=== PATIENT | female | born 1935 | race Caucasian/White ===

== ENCOUNTER 2017-07-26 14:53 | Inpatient (IN) | payer MEDICARE, MEDICAID ==
[2017-07-26 16:03] LABS: CHLORIDE,CL 96 mEq/L (98-106); SODIUM,NA 137 mEq/L (136-145)
[2017-07-26 16:28] LABS: O2 DELIVERY DEVICE NASAL CANNULA
[2017-07-26 16:29] LABS: BICARBONATE,ARTERIAL 32.4 mm/L (22.0-26.0); O2 FLOW RATE 3; O2 SATURATION ARTERIAL 82 % (95-98); PCO2 ARTERIAL 48 mm/Hg0 (35-45); PO2 ARTERIAL 46 mm/Hg (80-100)
--- NOTE | 2017-07-26 18:12 | EDM.PDOC ---
ED HPI GENERAL MEDICAL PROBLEM - General Chief Complaint: General Stated Complaint: DEHYDRATED/CONFUSED Time Seen by Provider: 07/26/17 15:05 Source of Information: Reports: Patient, EMS, EMS Notes Reviewed History Limitations: Reports: No Limitations - History of Present Illness INITIAL COMMENTS - FREE TEXT/NARRATIVE: Family was concerned about her increase in weakness and "not acting " right for the last day. She has been crawling around at home and not able to walk due to weakness. Has only been drinking boost for meals as she hasn't been able to get other food. She denies any complaints and did not want to come here today. She denies any fever or chills. Denies SOB, cough or abdominal concerns. Denies pain. Staff noted open area on buttock that she denies having. O2 sats on admit were in the 80's. Duration: Getting Worse Associated Symptoms: Reports: Cough, Shortness of Breath. Denies: Chest Pain, Fever/Chills Back Pain Score (Numeric/FACES): 8 - Related Data Allergies Allergy/AdvReac Type Severity Reaction Status Date / Time No Known Allergies Allergy Verified 07/26/17 15:32 Home Meds: Home Meds Ibuprofen 400 mg PO ASDIRECTED PRN 07/26/17 [History] Past Medical History HEENT History: Reports: Cataract, Impaired Vision Cardiovascular History: Reports: Heart Failure, Hypertension Respiratory History: Reports: COPD, Pneumonia, Recurrent Gastrointestinal History: Reports: Other (See Below) Other Gastrointestinal History: chronic stomach ache per daughter Genitourinary History: Reports: Acute Renal Failure [employer] 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: Musculoskeletal History: Reports: Back Pain, Chronic Psychiatric History: Reports: Anxiety, Depression Other Psychiatric History: has never taken medications for above - Past Surgical History HEENT Surgical History: Reports: Cataract Surgery Cardiovascular Surgical History: Reports: None Respiratory Surgical History: Reports: None, Tracheostomy GI Surgical History: Reports: Colonoscopy Female Surgical History: Reports: None Musculoskeletal Surgical History: Reports: Hip Replacement, Other (See Below) Other Musculoskeletal Surgeries/Procedures:: disc surgery in past Social & Family History - Tobacco Use Smoking Status *Q: Current Every Day Smoker Years of Tobacco use: 25 Packs/Tins Daily: 1 Used Tobacco, but Quit: No Second Hand Smoke Exposure: No - Alcohol Use Days Per Week of Alcohol Use: 0 - Recreational Drug Use Recreational Drug Use: No - Living Situation & Occupation Living situation: Reports: , with Spouse Occupation: Retired ED ROS GENERAL - Review of Systems Review Of Systems: See Below Constitutional: Reports: Weakness. Denies: Fever, Chills HEENT: Reports: No Symptoms Respiratory: Reports: Shortness of Breath, Cough Cardiovascular: Denies: Chest Pain GI/Abdominal: Reports: No Symptoms : Reports: No Symptoms Musculoskeletal: Reports: Back Pain Skin: Reports: No Symptoms Neurological: Reports: Confusion ED EXAM, GENERAL - Physical Exam Exam: See Below Exam Limited By: No Limitations General Appearance: Alert, No Apparent Distress Ears: Normal External Exam, Normal Canal Nose: Normal Inspection Throat/Mouth: Normal Inspection, Normal Oropharynx Head: Atraumatic, Normocephalic Neck: Normal Inspection, Supple, Non-Tender Respiratory/Chest: Decreased Breath Sounds (bilaterally, No rales or wheezing noted.) Cardiovascular: Irregularly Irregular, Other (edema bilaterally.) GI/Abdominal: Normal Bowel Sounds, Soft, Non-Tender Extremities: Pedal Edema (bilaterally) Neurological: Alert Skin Exam: Warm, Dry, Other (has open area quarter size noted. Bottom is red and irritated.) Course - Vital Signs Last Recorded V/S: Last Vital Signs Temp 97.6 F 07/26/17 15:00 Pulse 104 H 07/26/17 15:00 Resp 18 07/26/17 15:00 BP 100/71 07/26/17 15:00 Pulse Ox 92 L 07/26/17 15:00 - Orders/Labs/Meds Orders: Active Orders 24 hr Category Date Time Status Chest 2V [CR] Stat Exams 07/26/17 15:10 Taken Labs: Laboratory Tests 07/26/17 07/26/17 07/26/17 Range/Units 15:09 15:37 15:37 WBC 16.3 H (5.0-10.0) 10^3/uL RBC 5.18 (4.00-5.50) 10^6/uL Hgb 15.1 (12.0-16.0) g/dL Hct 45.0 (37.0-47.0) % MCV 86.9 (82.0-94.0) fL MCH 29.2 (27.0-32.0) pg MCHC 33.6 (33.0-38.0) g/dL RDW Coeff of Lisa 14.9 (11.0-15.0) % Plt Count 189 (150-400) 10^3/uL Add Manual Diff Yes Neutrophils % (Manual) 89 H (35-85) % Band Neutrophils % 4 (0-5) % Lymphocytes % (Manual) 4 L (21-55) % Monocytes % (Manual) 3 (2-12) % Absolute Neutrophils 15.16 H (1.80-7.00) 10^3/uL Lymphocytes # (Manual) 0.65 L (1.00-4.80) 10^3/uL Monocytes # (Manual) 0.49 (0.00-0.80) 10^3/uL ABG pH (7.35-7.45) ABG pCO2 (35-45) mm/Hg0 ABG pO2 (80-100) mm/Hg ABG HCO3 (22.0-26.0) mm/L ABG O2 Saturation (95-98) % ABG Base Excess (-2.0-3.0) O2 Delivery Device Oxygen Flow Rate Sodium 137 (136-145) mEq/L Potassium 4.6 D (3.5-5.0) mEq/L Chloride 96 L (98-106) mEq/L Carbon Dioxide 36 H (21-32) mmol/L BUN 61 H D (7-18) mg/dL Creatinine 0.8 (0.6-1.0) mg/dL Est Cr Clr Drug Dosing 34.71 mL/min Estimated GFR (MDRD) > 60 (>=60) mL/min Glucose 132 H (75-99) mg/dL Calcium 9.7 (8.4-10.1) mg/dL Total Bilirubin 0.9 (0.0-1.0) mg/dL AST 29 (15-37) U/L ALT 41 (12-78) U/L Alkaline Phosphatase 86 (46-116) U/L C-Reactive Protein 12.8 H (0.2-0.8) mg/dL NT-Pro-B Natriuret Pep 1643 H (0-1000) pg/mL Total Protein 7.6 (6.4-8.2) g/dL Albumin 3.0 L (3.4-5.0) g/dL Urine Color Yellow (YELLOW) Urine Appearance Clear (CLEAR) Urine pH 6.0 (4.5-8.0) Ur Specific [place] 1.015 (1.003-1.020) Urine Protein >=300 H (NEGATIVE) mg/dL Urine Glucose (UA) Negative (NEGATIVE) mg/dL Urine Ketones Negative (NEGATIVE) mg/dL Urine Occult Blood Small H (NEGATIVE) Urine Nitrite Negative (NEGATIVE) Urine Bilirubin Negative (NEGATIVE) Urine Urobilinogen 0.2 (0.2-1.0) EU/dL Ur Leukocyte Esterase Negative (NEGATIVE) Urine RBC 0-5 (0-5) /HPF Urine WBC 0-5 (0-5) /HPF Ur Squamous Epith Cells Few H (NOT SEEN) /HPF 07/26/17 Range/Units 16:20 WBC (5.0-10.0) 10^3/uL RBC (4.00-5.50) 10^6/uL Hgb (12.0-16.0) g/dL Hct (37.0-47.0) % MCV (82.0-94.0) fL MCH (27.0-32.0) pg MCHC (33.0-38.0) g/dL RDW Coeff of Lisa (11.0-15.0) % Plt Count (150-400) 10^3/uL Add Manual Diff Neutrophils % (Manual) (35-85) % Band Neutrophils % (0-5) % Lymphocytes % (Manual) (21-55) % Monocytes % (Manual) (2-12) % Absolute Neutrophils (1.80-7.00) 10^3/uL Lymphocytes # (Manual) (1.00-4.80) 10^3/uL Monocytes # (Manual) (0.00-0.80) 10^3/uL ABG pH 7.44 (7.35-7.45) ABG pCO2 48 H (35-45) mm/Hg0 ABG pO2 46 L (80-100) mm/Hg ABG HCO3 32.4 H (22.0-26.0) mm/L ABG O2 Saturation 82 L (95-98) % ABG Base Excess 8.0 H (-2.0-3.0) O2 Delivery Device Nasal cannula Oxygen Flow Rate 3 Sodium (136-145) mEq/L Potassium (3.5-5.0) mEq/L Chloride (98-106) mEq/L Carbon Dioxide (21-32) mmol/L BUN (7-18) mg/dL Creatinine (0.6-1.0) mg/dL Est Cr Clr Drug Dosing mL/min Estimated GFR (MDRD) (>=60) mL/min Glucose (75-99) mg/dL Calcium (8.4-10.1) mg/dL Total Bilirubin (0.0-1.0) mg/dL AST (15-37) U/L ALT (12-78) U/L Alkaline Phosphatase (46-116) U/L C-Reactive Protein (0.2-0.8) mg/dL NT-Pro-B Natriuret Pep (0-1000) pg/mL Total Protein (6.4-8.2) g/dL Albumin (3.4-5.0) g/dL Urine Color (YELLOW) Urine Appearance (CLEAR) Urine pH (4.5-8.0) Ur Specific [place] (1.003-1.020) Urine Protein (NEGATIVE) mg/dL Urine Glucose (UA) (NEGATIVE) mg/dL Urine Ketones (NEGATIVE) mg/dL Urine Occult Blood (NEGATIVE) Urine Nitrite (NEGATIVE) Urine Bilirubin (NEGATIVE) Urine Urobilinogen (0.2-1.0) EU/dL Ur Leukocyte Esterase (NEGATIVE) Urine RBC (0-5) /HPF Urine WBC (0-5) /HPF Ur Squamous Epith Cells (NOT SEEN) /HPF Departure - Departure Time of Disposition: 16:55 Disposition: Admitted As Inpatient 68 Condition: Poor Clinical Impression: Pneumonia, Tobacco dependence syndrome - Discharge Information - Problem List & Annotations (1) Pneumonia SNOMED Code(s): 205447892 Code(s): J18.9 - PNEUMONIA, UNSPECIFIED ORGANISM Status: Acute Priority: High Current Visit: Yes (2) Palliative care status SNOMED Code(s): 801722955 Code(s): Z51.5 - ENCOUNTER FOR PALLIATIVE CARE Status: Acute Priority: High Current Visit: Yes (3) Tobacco dependence syndrome SNOMED Code(s): 56840965 Code(s): F17.200 - NICOTINE DEPENDENCE, UNSPECIFIED, UNCOMPLICATED Status: Acute Priority: High Current Visit: Yes - Problem List Review Problem List Initiated/Reviewed/Updated: Yes - My Orders Last 24 Hours: My Active Orders 07/26/17 15:10 Chest 2V [CR] Stat - Assessment/Plan Admission H&P: Please use this note as an admission H&P Last 24 Hours: My Active Orders 07/26/17 15:10 Chest 2V [CR] Stat
[2017-07-26] MEDS ORDERED: Acetaminophen 325 MG Tab PO PRN (18:38)
[2017-07-26] MEDS ORDERED: Albuterol/Ipratropium 3.0-0.5 MG/3 ML Neb Soln ONE (18:51)
[2017-07-26] MEDS: Albuterol/Ipratropium 3.0-0.5 MG/3 ML Neb Soln NEB SCH ×2 (18:55→19:37)
[2017-07-26] MEDS ORDERED: methylPREDNISolone Sodium Succinate 125 MG/2 ML SDV IVPUSH SCH (19:00)
[2017-07-26] MEDS ORDERED: cefTRIAXone 1 GM Vial IVPUSH SCH (19:00)
[2017-07-26] MEDS ORDERED: Azithromycin 500 MG in Sodium Chloride 0.9% 250 ML IV SCH (19:00)
[2017-07-26] MEDS ORDERED: Enoxaparin 30 MG/0.3 ML Syringe SUBCUT SCH (19:00)
[2017-07-26] MEDS: Lactated Ringers 1,000 ML IV SCH (19:09)
[2017-07-26] MEDS ORDERED: Oxyquinoline/Emollient 0.3% Oint 1 OZ Canister TOP PRN (19:38)
[2017-07-26] MEDS ORDERED: Nicotine 7 MG/24 Hr Patch ONE (19:59)
[2017-07-27 07:20] LABS: CHLORIDE,CL 104 mEq/L (98-106); SODIUM,NA 142 mEq/L (136-145)
[2017-07-27] MEDS ORDERED: Nicotine 7 MG/24 Hr Patch TRDERM SCH (08:00)
[2017-07-27] MEDS: Albuterol/Ipratropium 3.0-0.5 MG/3 ML Neb Soln NEB SCH ×4 (08:30→19:44)
[2017-07-27] MEDS: methylPREDNISolone Sodium Succinate 125 MG/2 ML SDV IVPUSH SCH (08:34)
[2017-07-27] MEDS: Lactated Ringers 1,000 ML IV SCH ×2 (08:36→19:44)
[2017-07-27] MEDS ORDERED: FLU Vacc QS 2017-18 (36mos UP)/PF 60 MCG/0.5 ML Syringe IM ONE (08:56)
[2017-07-27] MEDS: Azithromycin 250 MG Tab PO SCH (14:26)
--- NOTE | 2017-07-27 15:49 | PCM.PN ---
- General Info Date of Service: 07/27/17 Functional Status: Reports: Tolerating Diet (minimal oral intake, drinking water.). Denies: Ambulating - Review of Systems General: Reports: Weakness, Fatigue. Denies: Fever HEENT: Reports: No Symptoms Pulmonary: Reports: Shortness of Breath, Cough Cardiovascular: Denies: Chest Pain, Edema Gastrointestinal: Denies: Abdominal Pain, Nausea, Vomiting Neurological: Reports: Confusion - Patient Data Vitals - Most Recent: Last Vital Signs Temp 97.8 F 07/27/17 04:00 Pulse 99 07/27/17 04:00 Resp 18 07/27/17 04:00 BP 128/47 L 07/27/17 04:00 Pulse Ox 94 L 07/27/17 04:18 Weight - Most Recent: 69 lb 11.2 oz I&O - Last 24 Hours: Intake & Output 07/27/17 07/27/17 07/27/17 06:59 14:59 22:59 Intake Total 200 1000 Output Total 300 Balance -100 1000 Lab Results Last 24 Hours: Laboratory Results - last 24 hr 07/27/17 07/27/17 Range/Units 07:00 07:00 WBC 15.2 H (5.0-10.0) 10^3/uL RBC 4.30 (4.00-5.50) 10^6/uL Hgb 12.6 (12.0-16.0) g/dL Hct 38.8 (37.0-47.0) % MCV 90.2 (82.0-94.0) fL MCH 29.3 (27.0-32.0) pg MCHC 32.5 L (33.0-38.0) g/dL RDW Coeff of Lisa 15.0 (11.0-15.0) % Plt Count 163 (150-400) 10^3/uL Add Manual Diff Yes Neutrophils % (Manual) 72 (35-85) % Band Neutrophils % 24 H (0-5) % Lymphocytes % (Manual) 2 L (21-55) % Monocytes % (Manual) 2 (2-12) % Absolute Neutrophils 14.59 H (1.80-7.00) 10^3/uL Lymphocytes # (Manual) 0.30 L (1.00-4.80) 10^3/uL Monocytes # (Manual) 0.30 (0.00-0.80) 10^3/uL Sodium 142 (136-145) mEq/L Potassium 4.4 (3.5-5.0) mEq/L Chloride 104 (98-106) mEq/L Carbon Dioxide 35 H (21-32) mmol/L BUN 43 H (7-18) mg/dL Creatinine 0.7 (0.6-1.0) mg/dL Est Cr Clr Drug Dosing 32.52 mL/min Estimated GFR (MDRD) > 60 (>=60) mL/min Glucose 132 H (75-99) mg/dL Calcium 8.5 (8.4-10.1) mg/dL C-Reactive Protein 16.3 H (0.2-0.8) mg/dL Med Orders - Current: Current Medications Acetaminophen (Tylenol) 650 mg PO Q4H PRN PRN Reason: Pain (Mild 1-3)/fever Albuterol/Ipratropium (Duoneb 3.0-0.5 Mg/3 Ml) 3 ml NEB QIDRT [facility] Last Admin: 07/27/17 12:24 Dose: 3 ml Azithromycin (Zithromax) 250 mg PO DAILY [facility] Last Admin: 07/27/17 14:26 Dose: 250 mg Ceftriaxone Sodium (Rocephin) 1 gm IVPUSH Q24H [facility] Enoxaparin Sodium (Lovenox) 30 mg SUBCUT Q24H [facility] Lactated Ringer's (Ringers, Lactated) 1,000 mls @ 75 mls/hr IV ASDIRECTED [facility] Last Admin: 07/27/17 08:36 Dose: 75 mls/hr Methylprednisolone Sodium Succinate (Solu-Medrol) 62.5 mg IVPUSH Q24H [facility] Last Admin: 07/27/17 08:34 Dose: 62.5 mg Nicotine (Habitrol) 7 mg TRDERM DAILY@1999 [facility] Oxyquinoline Sulfate (Bag [place] Oint) 0 oz TOP ASDIRECTED PRN PRN Reason: Wound Care Discontinued Medications Albuterol/Ipratropium (Duoneb 3.0-0.5 Mg/3 Ml) Confirm Administered Dose 3 ml .ROUTE .STK-MED ONE Stop: 07/26/17 18:52 Last Admin: 07/26/17 18:40 Dose: Not Given Ceftriaxone Sodium (Rocephin) 1 gm IVPUSH Q24H [facility] Last Admin: 07/26/17 19:09 Dose: 1 gm Enoxaparin Sodium (Lovenox) 30 mg SUBCUT Q24H [facility] Last Admin: 07/26/17 19:08 Dose: 30 mg Azithromycin 500 mg/ Sodium (Chloride) 250 mls @ 250 mls/hr IV Q24H [facility] Last Admin: 07/26/17 19:09 Dose: 250 mls/hr Azithromycin 500 mg/ Sodium (Chloride) 250 mls @ 250 mls/hr IV Q24H [facility] Influenza Virus Vaccine (Fluzone Quad [id number]) 60 mcg IM .ONCE ONE Stop: 07/27/17 08:57 Last Admin: 07/27/17 14:21 Dose: 60 mcg Methylprednisolone Sodium Succinate (Solu-Medrol) 62.5 mg IVPUSH Q24H [facility] Last Admin: 07/26/17 19:09 Dose: 62.5 mg Nicotine (Habitrol) 7 mg TRDERM DAILY [facility] Last Admin: 07/26/17 19:48 Dose: 7 mg Nicotine (Habitrol) Confirm Administered Dose 7 mg .ROUTE .STK-MED ONE Stop: 07/26/17 20:00 Last Admin: 07/26/17 20:47 Dose: Not Given - Exam Quality Assessment: Supplemental Oxygen General: Alert, Mild Distress. No: Oriented (disoriented to place and time) HEENT: Other (mucous membranes dry) Neck: Supple Lungs: Decreased Breath Sounds, Rales Cardiovascular: Regular Rate, Regular Rhythm GI/Abdominal Exam: Normal Bowel Sounds, Soft, Non-Tender Extremities: Normal Inspection, No Pedal Edema Skin: Warm, Dry Neurological: No New Focal Deficit - Problem List & Annotations (1) Palliative care status SNOMED Code(s): 798562799 Code(s): Z51.5 - ENCOUNTER FOR PALLIATIVE CARE Status: Acute Priority: High Current Visit: Yes (2) Pneumonia SNOMED Code(s): 778912436 Code(s): J18.9 - PNEUMONIA, UNSPECIFIED ORGANISM Status: Acute Priority: High Current Visit: Yes (3) COPD, Moderate chronic obstructive pulmonary disease SNOMED Code(s): 684844205 Code(s): J44.9 - CHRONIC OBSTRUCTIVE PULMONARY DISEASE, UNSPECIFIED Status : Chronic Priority: High Current Visit: Yes - Problem List Review Problem List Initiated/Reviewed/Updated: Yes - My Orders Last 24 Hours: My Active Orders 07/27/17 08:56 Echo Comp wo Cont [US] Routine 07/27/17 14:00 Azithromycin [Zithromax] 250 mg PO DAILY - Assessment Assessment:: RLL pneumonia Palliative Care patient COPD exacerbation - Plan Plan:: Patient alert, voice hoarse. Disoriented to place and time, does not answer questions appropriately this am. Frail, has been living alone and not doing well. She has not been eating well per daughter, survives on Boost and water. Has been sitting in a chair for unknown period of time, incontinent. Oxygen sats maintaining over 90% with 4 liters of oxygen. Lung sounds note diminished air exchange, rales in the RLL. No edema. Abdomen is soft. WBC is 15.2, CRP of 16.3. ProBNP of 1643. Will obtain echocardiogram due to mild CHF. Continue IV Rocephin and oral zithromax, neb treatments, oxygen. Palliative cares. 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 Daughter relates she has been very resistive to this in the past due to her smoking history. Do not feel she can further care for herself at home.
[2017-07-27] MEDS: Enoxaparin 30 MG/0.3 ML Syringe SUBCUT SCH (19:44)
[2017-07-27] MEDS: cefTRIAXone 1 GM Vial IVPUSH SCH (19:44)
[2017-07-27] MEDS: Pantoprazole 40 MG Vial IVPUSH SCH (19:45)
[2017-07-27] MEDS: Nicotine 7 MG/24 Hr Patch TRDERM SCH (20:00)
[2017-07-27] MEDS ORDERED: Azithromycin 500 MG in Sodium Chloride 0.9% 250 ML IV SCH (20:00)
[2017-07-28] MEDS: Azithromycin 250 MG Tab PO SCH (07:40)
[2017-07-28] MEDS: Albuterol/Ipratropium 3.0-0.5 MG/3 ML Neb Soln NEB SCH ×4 (07:40→20:24)
[2017-07-28] MEDS: methylPREDNISolone Sodium Succinate 125 MG/2 ML SDV IVPUSH SCH (07:40)
[2017-07-28 08:13] LABS: CHLORIDE,CL 103 mEq/L (98-106); SODIUM,NA 139 mEq/L (136-145)
--- NOTE | 2017-07-28 12:24 | PCM.PN ---
- General Info Date of Service: 07/28/17 Admission Dx/Problem (Free Text): RLL pneumonia Functional Status: Reports: Tolerating Diet. Denies: Ambulating - Review of Systems General: Reports: Weakness, Fatigue, Malaise. Denies: Fever HEENT: Reports: Rhinitis Pulmonary: Reports: Shortness of Breath, Cough Cardiovascular: Denies: Chest Pain, Edema, Lightheadedness Gastrointestinal: Denies: Abdominal Pain, Nausea, Vomiting Neurological: Reports: Confusion (intermittent) - Patient Data Vitals - Most Recent: Last Vital Signs Temp 98.3 F 07/28/17 07:15 Pulse 80 07/28/17 07:15 Resp 16 07/28/17 07:15 BP 156/55 H 07/28/17 07:15 Pulse Ox 95 07/28/17 07:15 Weight - Most Recent: 69 lb 11.2 oz I&O - Last 24 Hours: Intake & Output 07/27/17 07/28/17 07/28/17 22:59 06:59 14:59 Intake Total 1235 350 Output Total 325 Balance 1235 25 Lab Results Last 24 Hours: Laboratory Results - last 24 hr 07/28/17 07/28/17 Range/Units 07:30 07:30 WBC 15.8 H (5.0-10.0) 10^3/uL RBC 3.99 L (4.00-5.50) 10^6/uL Hgb 11.7 L (12.0-16.0) g/dL Hct 35.8 L (37.0-47.0) % MCV 89.7 (82.0-94.0) fL MCH 29.3 (27.0-32.0) pg MCHC 32.7 L (33.0-38.0) g/dL RDW Coeff of Lisa 14.9 (11.0-15.0) % Plt Count 171 (150-400) 10^3/uL Neut % (Auto) 93.4 H (35-85) % Lymph % (Auto) 2.1 L (10-55) % [place] % (Auto) 4.5 (0-16) % Eos % (Auto) 0 (0-5) % Baso % (Auto) 0 (0-3) % Neut # (Auto) 14.75 H (1.80-7.00) 10^3/uL Lymph # (Auto) 0.33 L (1.00-4.80) 10^3/uL [place] # (Auto) 0.71 (0.00-0.80) 10^3/uL Eos # (Auto) 0.00 (0.00-0.45) 10^3/uL Baso # (Auto) 0.00 10^3/uL Sodium 139 (136-145) mEq/L Potassium 4.0 (3.5-5.0) mEq/L Chloride 103 (98-106) mEq/L Carbon Dioxide 34 H (21-32) mmol/L BUN 24 H (7-18) mg/dL Creatinine 0.5 L (0.6-1.0) mg/dL Est Cr Clr Drug Dosing 45.53 mL/min Estimated GFR (MDRD) > 60 (>=60) mL/min Glucose 99 (75-99) mg/dL Calcium 8.3 L (8.4-10.1) mg/dL C-Reactive Protein 7.1 H (0.2-0.8) mg/dL Brian Results Last 24 Hours: Microbiology 07/27/17 17:10 Gram Stain - Preliminary Sputum - Expectorated Sputum Culture - Preliminary 07/27/17 19:20 Occult Blood - Preliminary Stool / Feces - Stool, Formed Med Orders - Current: Current Medications Acetaminophen (Tylenol) 650 mg PO Q4H PRN PRN Reason: Pain (Mild 1-3)/fever Albuterol/Ipratropium (Duoneb 3.0-0.5 Mg/3 Ml) 3 ml NEB QIDRT [facility] Last Admin: 07/28/17 11:56 Dose: 3 ml Azithromycin (Zithromax) 250 mg PO DAILY [facility] Last Admin: 07/28/17 07:40 Dose: 250 mg Ceftriaxone Sodium (Rocephin) 1 gm IVPUSH Q24H [facility] Last Admin: 07/27/17 19:44 Dose: 1 gm Enoxaparin Sodium (Lovenox) 30 mg SUBCUT Q24H [facility] Last Admin: 07/27/17 19:44 Dose: 30 mg Lactated Ringer's (Ringers, Lactated) 1,000 mls @ 75 mls/hr IV ASDIRECTED [facility] Last Admin: 07/27/17 19:44 Dose: 75 mls/hr Methylprednisolone Sodium Succinate (Solu-Medrol) 62.5 mg IVPUSH Q24H [facility] Last Admin: 07/28/17 07:40 Dose: 62.5 mg Nicotine (Habitrol) 7 mg TRDERM DAILY@1999 [facility] Last Admin: 07/27/17 20:00 Dose: 7 mg Oxyquinoline Sulfate (Bag [place] Oint) 0 oz TOP ASDIRECTED PRN PRN Reason: Wound Care Pantoprazole Sodium (Protonix Iv) 40 mg IVPUSH Q24H [facility] Last Admin: 07/27/17 19:45 Dose: 40 mg Discontinued Medications Albuterol/Ipratropium (Duoneb 3.0-0.5 Mg/3 Ml) Confirm Administered Dose 3 ml .ROUTE .STK-MED ONE Stop: 07/26/17 18:52 Last Admin: 07/26/17 18:40 Dose: Not Given Ceftriaxone Sodium (Rocephin) 1 gm IVPUSH Q24H [facility] Last Admin: 07/26/17 19:09 Dose: 1 gm Enoxaparin Sodium (Lovenox) 30 mg SUBCUT Q24H [facility] Last Admin: 07/26/17 19:08 Dose: 30 mg Azithromycin 500 mg/ Sodium (Chloride) 250 mls @ 250 mls/hr IV Q24H [facility] Last Admin: 07/26/17 19:09 Dose: 250 mls/hr Azithromycin 500 mg/ Sodium (Chloride) 250 mls @ 250 mls/hr IV Q24H [facility] Influenza Virus Vaccine (Fluzone Quad [id number]) 60 mcg IM .ONCE ONE Stop: 07/27/17 08:57 Last Admin: 07/27/17 14:21 Dose: 60 mcg Methylprednisolone Sodium Succinate (Solu-Medrol) 62.5 mg IVPUSH Q24H [facility] Last Admin: 07/26/17 19:09 Dose: 62.5 mg Nicotine (Habitrol) 7 mg TRDERM DAILY [facility] Last Admin: 07/26/17 19:48 Dose: 7 mg Nicotine (Habitrol) Confirm Administered Dose 7 mg .ROUTE .STK-MED ONE Stop: 07/26/17 20:00 Last Admin: 07/26/17 20:47 Dose: Not Given - Exam Quality Assessment: Supplemental Oxygen General: Alert, Oriented (to person only), Cooperative HEENT: Mucous Membr. Moist/[place] Neck: Supple Lungs: Rales (RLL) GI/Abdominal Exam: Normal Bowel Sounds, Soft, Non-Tender Extremities: No Pedal Edema Skin: Warm, Dry Neurological: No New Focal Deficit - Problem List & Annotations (1) Palliative care status SNOMED Code(s): 765580007 Code(s): Z51.5 - ENCOUNTER FOR PALLIATIVE CARE Status: Acute Priority: High Current Visit: Yes (2) Pneumonia SNOMED Code(s): 395596315 Code(s): J18.9 - PNEUMONIA, UNSPECIFIED ORGANISM Status: Acute Priority: High Current Visit: Yes (3) COPD, Moderate chronic obstructive pulmonary disease SNOMED Code(s): 100968274 Code(s): J44.9 - CHRONIC OBSTRUCTIVE PULMONARY DISEASE, UNSPECIFIED Status : Chronic Priority: High Current Visit: Yes - Problem List Review Problem List Initiated/Reviewed/Updated: Yes - My Orders Last 24 Hours: My Active Orders 07/27/17 14:00 Azithromycin [Zithromax] 250 mg PO DAILY 07/27/17 19:20 OCCULT BLOOD SCREEN [OP] Routine 07/27/17 20:00 Pantoprazole [ProTONIX IV] 40 mg IVPUSH Q24H - Assessment Assessment:: RLL pneumonia Palliative Care patient COPD exacerbation - Plan Plan:: Patient alert, voice hoarse. Disoriented to place and time, does not answer questions appropriately this am. Frail, has been living alone and not doing well. She has not been eating well per daughter, survives on Boost and water. Has been sitting in a chair for unknown period of time, incontinent. Oxygen sats maintaining over 90% with 4 liters of oxygen. Lung sounds note diminished air exchange, rales in the RLL. No edema. Abdomen is soft. WBC is 15.2, CRP of 16.3. ProBNP of 1643. Will obtain echocardiogram due to mild CHF. Continue IV Rocephin and oral zithromax, neb treatments, oxygen. Palliative cares. 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 Daughter relates she has been very resistive to this in the past due to her smoking history. Do not feel she can further care for herself at home. 07-28-2017 Patient admits to feeling achy today. Disoriented to place and time. Able to converse appropriately at times. Nurses report difficulty with transfers and bearing weight due to weakness. Short of breath, coughing at times. Lung sounds noted to have rales RLL. Oxygen sats improved, 95% on 2 liters. Labs noted to have WBC of 15.8, CRP improved to 7.1. Will continue with IV antibiotics, nebs, and wean oxygen as able. Stop IV fluids. PT to evaluate.
[2017-07-28] MEDS ORDERED: Sodium Chloride 0.9% 10 ML Syringe FLUSH PRN (12:25)
[2017-07-28] MEDS: Nicotine 7 MG/24 Hr Patch TRDERM SCH (20:24)
[2017-07-28] MEDS: Enoxaparin 30 MG/0.3 ML Syringe SUBCUT SCH (20:26)
[2017-07-28] MEDS: Pantoprazole 40 MG Vial IVPUSH SCH (20:33)
[2017-07-28] MEDS: cefTRIAXone 1 GM Vial IVPUSH SCH (20:34)
[2017-07-29 07:40] LABS: CHLORIDE,CL 97 mEq/L (98-106); SODIUM,NA 135 mEq/L (136-145)
[2017-07-29] MEDS: Albuterol/Ipratropium 3.0-0.5 MG/3 ML Neb Soln NEB SCH (08:00)
[2017-07-29] MEDS: methylPREDNISolone Sodium Succinate 125 MG/2 ML SDV IVPUSH SCH (08:00)
[2017-07-29] MEDS: Azithromycin 250 MG Tab PO SCH (08:04)
--- NOTE | 2017-07-31 11:48 | PCM.DCSUM1 ---
Discharge Summary - Hospital Course Free Text/Narrative:: Patient presented to ER per EMS from [place] with increased shortness of breath, weakness, and difficulty walking. Patient was found sitting in a chair, large amount of incontinence, feels she had been there for at least a day. Admits that she had been crawling around in her house as she couldn't walk. ER work up showed a RLL pneumonia. Was hypoxic with sats in the 70s. WBC 16.3, ProBNP 1643, CRP 12.8. Admitted and started on IV Levaquin, steroids, and nebulizer treatments. IV fluids. Oxygen. - Discharge Data Discharge Date: 07/29/17 Discharge Disposition: DC/Tfer W/I Hosp To [place] [id number] Condition: Good - Discharge Diagnosis/Problem(s) (1) Palliative care status SNOMED Code(s): 883009561 ICD Code: Z51.5 - ENCOUNTER FOR PALLIATIVE CARE Status: Acute Priority: High (2) Pneumonia SNOMED Code(s): 753316210 ICD Code: J18.9 - PNEUMONIA, UNSPECIFIED ORGANISM Status: Acute Priority : High (3) COPD, Moderate chronic obstructive pulmonary disease SNOMED Code(s): 115643196 ICD Code: J44.9 - CHRONIC OBSTRUCTIVE PULMONARY DISEASE, UNSPECIFIED Status : Chronic Priority: High - Patient Summary/Data Complications: none Consults: Consultations 07/26/17 18:38 PT Evaluation and Treatment [CONS] Routine Hospital Course: Patient presented hypoxic and short of breath. Slow improvement of respiratory status. Breathing much easier, requiring less oxygen than on admit. Oxygen sats 90s with 2 liters. She continues to remain frail, requires 2 for transfers to chair. Continues to have rales in RLL. Eating small amounts and tolerating. Initial WBC 16.3, improved to 15.0 by discharge but also on IV steroids. CRP much improved from 12.8 to 3.8. Initial BNP elevated, echocardiogram obtained. 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 Patient aware and understands. - Discharge Plan Home Medications: Home Meds Ibuprofen 400 mg PO ASDIRECTED PRN 07/26/17 [History] Forms: ED Department Discharge Referrals: PCP,None [Primary Care Provider] - - Discharge Summary/Plan Comment DC Time >30 min.: Yes Discharge Summary/Plan Comment: Transfer to swing bed due to need for ongoing IV antibiotics, PT, and overall health status while awaiting long term patient as is unable to care for self. time with patient and family 15 minutes Time for transfer orders 10 minutes Documentation time 10 minutes. - General Info Date of Service: 07/29/17 Admission Dx/Problem (Free Text: RLL pneumonia Functional Status: Reports: Pain Controlled, Tolerating Diet. Denies: Ambulating - Review of Systems General: Reports: Weakness, Fatigue, Malaise. Denies: Fever HEENT: Reports: No Symptoms Pulmonary: Reports: Shortness of Breath, Cough. Denies: Wheezing Cardiovascular: Denies: Chest Pain, Edema, Lightheadedness Gastrointestinal: Denies: Abdominal Pain, Nausea, Vomiting Genitourinary: Reports: Incontinence Musculoskeletal: Reports: No Symptoms Skin: Reports: No Symptoms Neurological: Reports: No Symptoms - Patient Data Vitals - Most Recent: Last Vital Signs Temp 97.9 F 07/29/17 07:34 Pulse 103 H 07/29/17 07:34 Resp 16 07/29/17 07:34 BP 150/64 H 07/29/17 07:34 Pulse Ox 94 L 07/29/17 07:34 Weight - Most Recent: 72 lb 14.4 oz Med Orders - Current: Current Medications Discontinued Medications Acetaminophen (Tylenol) 650 mg PO Q4H PRN PRN Reason: Pain (Mild 1-3)/fever Albuterol/Ipratropium (Duoneb 3.0-0.5 Mg/3 Ml) Confirm Administered Dose 3 ml .ROUTE .STK-MED ONE Stop: 07/26/17 18:52 Last Admin: 07/26/17 18:40 Dose: Not Given Albuterol/Ipratropium (Duoneb 3.0-0.5 Mg/3 Ml) 3 ml NEB QIDRT [facility] Last Admin: 07/29/17 08:00 Dose: 3 ml Azithromycin (Zithromax) 250 mg PO DAILY [facility] Last Admin: 07/29/17 08:04 Dose: 250 mg Ceftriaxone Sodium (Rocephin) 1 gm IVPUSH Q24H [facility] Last Admin: 07/26/17 19:09 Dose: 1 gm Ceftriaxone Sodium (Rocephin) 1 gm IVPUSH Q24H [facility] Last Admin: 07/28/17 20:34 Dose: 1 gm Enoxaparin Sodium (Lovenox) 30 mg SUBCUT Q24H [facility] Last Admin: 07/26/17 19:08 Dose: 30 mg Enoxaparin Sodium (Lovenox) 30 mg SUBCUT Q24H [facility] Last Admin: 07/28/17 20:26 Dose: 30 mg Azithromycin 500 mg/ Sodium (Chloride) 250 mls @ 250 mls/hr IV Q24H [facility] Last Admin: 07/26/17 19:09 Dose: 250 mls/hr Lactated Ringer's (Ringers, Lactated) 1,000 mls @ 75 mls/hr IV ASDIRECTED [facility] Last Admin: 07/27/17 19:44 Dose: 75 mls/hr Azithromycin 500 mg/ Sodium (Chloride) 250 mls @ 250 mls/hr IV Q24H [facility] Influenza Virus Vaccine (Fluzone Quad [id number]) 60 mcg IM .ONCE ONE Stop: 07/27/17 08:57 Last Admin: 07/27/17 14:21 Dose: 60 mcg Methylprednisolone Sodium Succinate (Solu-Medrol) 62.5 mg IVPUSH Q24H [facility] Last Admin: 07/26/17 19:09 Dose: 62.5 mg Methylprednisolone Sodium Succinate (Solu-Medrol) 62.5 mg IVPUSH Q24H [facility] Last Admin: 07/29/17 08:00 Dose: 62.5 mg Nicotine (Habitrol) 7 mg TRDERM DAILY [facility] Last Admin: 07/26/17 19:48 Dose: 7 mg Nicotine (Habitrol) Confirm Administered Dose 7 mg .ROUTE .STK-MED ONE Stop: 07/26/17 20:00 Last Admin: 07/26/17 20:47 Dose: Not Given Nicotine (Habitrol) 7 mg TRDERM DAILY@1999 [facility] Last Admin: 07/28/17 20:24 Dose: 7 mg Oxyquinoline Sulfate (Bag [place] Oint) 0 oz TOP ASDIRECTED PRN PRN Reason: Wound Care Pantoprazole Sodium (Protonix Iv) 40 mg IVPUSH Q24H [facility] Last Admin: 07/28/17 20:33 Dose: 40 mg Sodium Chloride (Saline Flush) 10 ml FLUSH ASDIRECTED PRN PRN Reason: Keep Vein Open - Exam Quality Assessment: Reports: Supplemental Oxygen General: Reports: Alert, Oriented HEENT: Reports: Mucous Membr. Moist/[place] Neck: Reports: Supple Lungs: Reports: Clear to Auscultation, Normal Respiratory Effort Cardiovascular: Reports: Regular Rate, Regular Rhythm GI/Abdominal Exam: Normal Bowel Sounds, Soft, Non-Tender Extremities: Normal Inspection, No Pedal Edema Skin: Reports: Warm, Dry Neurological: Reports: No New Focal Deficit *Q Meaningful Use (DIS) - VTE *Q VTE Criteria *Q: - Stroke *Q Stroke Criteria *Q: - AMI *Q AMI Criteria *Q:
== END 2017-07-29 09:20 | disposition swing bed (61) | DRG 190 ==
LOC: CC.ED 14:53 → UNDOADMIN 16:55 → CC.MS 16:55 → UNDODISIN 07-29 09:20
PROVIDERS: ADMIT Physician Assistant Medical; ATTEND Family Medicine
PROC: 3E0234Z Introduction of Serum, Toxoid and Vaccine into Muscle, Percutaneous Approach (ICD-10-PCS; principal; 2017-07-27)
DX: J44.0 Chronic obstructive pulmonary disease with (acute) lower respiratory infection (principal); J18.9 Pneumonia, unspecified organism; Z87.01 Personal history of pneumonia (recurrent); J44.9 Chronic obstructive pulmonary disease, unspecified; I11.0 Hypertensive heart disease with heart failure; I50.9 Heart failure, unspecified; J44.1 Chronic obstructive pulmonary disease with (acute) exacerbation; R09.02 Hypoxemia; Z51.5 Encounter for palliative care; F17.210 Nicotine dependence, cigarettes, uncomplicated; R53.1 Weakness; R26.2 Difficulty in walking, not elsewhere classified; F03.90 Unspecified dementia, unspecified severity, without behavioral disturbance, psychotic disturbance, mood disturbance, and anxiety; H54.7 Unspecified visual loss; G89.29 Other chronic pain; M54.9 Dorsalgia, unspecified; Z23 Encounter for immunization
CPT/HCPCS: 36415; 36600; 51701; 51702; 71020; 80048; 80053; 81001; 82270; 82803; 83880; 85025; 86140; 87070; 87205; 90686; 93005; 93306; 94640; 97110-GP; 97161-GP; 99285; A9270-GY; C9113; G0008; J0456; J0696; J1650; J2930; J7050; J7120

== ENCOUNTER 2017-07-29 09:25 | Inpatient (IN) | payer MEDICARE, MEDICAID ==
[2017-07-29] MEDS ORDERED: Acetaminophen 325 MG Tab PO PRN (09:46)
[2017-07-29] MEDS ORDERED: Sodium Chloride 0.9% 10 ML Syringe FLUSH PRN ×2 (09:46)
[2017-07-29] MEDS: Albuterol/Ipratropium 3.0-0.5 MG/3 ML Neb Soln NEB SCH ×3 (12:00→19:54)
[2017-07-29] MEDS: Nicotine 7 MG/24 Hr Patch TRDERM SCH (19:52)
[2017-07-29] MEDS: Enoxaparin 30 MG/0.3 ML Syringe SUBCUT SCH (19:54)
[2017-07-29] MEDS: cefTRIAXone 1 GM Vial IVPUSH SCH (19:55)
[2017-07-29] MEDS: Pantoprazole 40 MG Vial IVPUSH SCH (19:59)
[2017-07-30] MEDS: methylPREDNISolone Sodium Succinate 125 MG/2 ML SDV IVPUSH SCH (07:48)
[2017-07-30] MEDS: Albuterol/Ipratropium 3.0-0.5 MG/3 ML Neb Soln NEB SCH ×4 (07:48→19:26)
[2017-07-30] MEDS: Azithromycin 250 MG Tab PO SCH (07:49)
[2017-07-30] MEDS: traMADol 50 MG Tab PO PRN (14:04)
[2017-07-30] MEDS: Pantoprazole 40 MG Vial IVPUSH SCH (19:25)
[2017-07-30] MEDS: cefTRIAXone 1 GM Vial IVPUSH SCH (19:25)
[2017-07-30] MEDS: Enoxaparin 30 MG/0.3 ML Syringe SUBCUT SCH (19:27)
[2017-07-30] MEDS: Nicotine 7 MG/24 Hr Patch TRDERM SCH (19:27)
[2017-07-31] MEDS: Albuterol/Ipratropium 3.0-0.5 MG/3 ML Neb Soln NEB SCH ×4 (07:30→20:13)
[2017-07-31] MEDS: Azithromycin 250 MG Tab PO SCH (07:30)
[2017-07-31] MEDS: methylPREDNISolone Sodium Succinate 125 MG/2 ML SDV IVPUSH SCH (07:31)
[2017-07-31] MEDS: traMADol 50 MG Tab PO PRN (14:28)
[2017-07-31] MEDS: Nicotine 7 MG/24 Hr Patch TRDERM SCH (20:13)
[2017-07-31] MEDS: cefTRIAXone 1 GM Vial IVPUSH SCH (20:14)
[2017-07-31] MEDS: Pantoprazole 40 MG Vial IVPUSH SCH (20:17)
[2017-07-31] MEDS: Enoxaparin 30 MG/0.3 ML Syringe SUBCUT SCH (20:26)
[2017-08-01] MEDS: traMADol 50 MG Tab PO PRN ×2 (04:17→18:53)
[2017-08-01] MEDS: Albuterol/Ipratropium 3.0-0.5 MG/3 ML Neb Soln NEB SCH ×4 (08:15→21:01)
[2017-08-01] MEDS: methylPREDNISolone Sodium Succinate 125 MG/2 ML SDV IVPUSH SCH (08:18)
[2017-08-01] MEDS: Azithromycin 250 MG Tab PO SCH (08:18)
[2017-08-01 08:19] LABS: O2 DELIVERY DEVICE NASAL CANNULA
[2017-08-01 08:21] LABS: BICARBONATE,ARTERIAL 35.7 mm/L (22.0-26.0); O2 SATURATION ARTERIAL 79 % (95-98); PCO2 ARTERIAL 46 mm/Hg0 (35-45); PO2 ARTERIAL 40 mm/Hg (80-100)
[2017-08-01 08:41] LABS: CHLORIDE,CL 91 mEq/L (98-106); SODIUM,NA 132 mEq/L (136-145)
[2017-08-01] MEDS ORDERED: Iopamidol 755 Mg/ML 100 ML Bottle IVPUSH ONE (09:32)
[2017-08-01] MEDS: LORazepam 2 MG/ML Syringe IVPUSH PRN (10:06)
[2017-08-01] MEDS ORDERED: Enoxaparin 30 MG/0.3 ML Syringe SUBCUT ONE (14:15)
[2017-08-01] MEDS ORDERED: Furosemide 40 MG/4 ML VIAL IVPUSH ONE (18:09)
[2017-08-01] MEDS ORDERED: Furosemide 40 MG/4 ML VIAL ONE (18:33)
--- NOTE | 2017-08-01 19:10 | PCM.PN ---
- General Info Date of Service: 08/01/17 Admission Dx/Problem (Free Text): RLL pneumonia Subjective Update: Called to patient's room this am due to increased shortness of breath, hypoxia despite being on 5 liters of oxygen. Patient had a restful night and sudden onset of shortness of breath this am. Patient relates "just not feeling all that well". Staff reports more confused than what she has been over the last few days. Functional Status: Denies: Tolerating Diet - Review of Systems General: Reports: Weakness. Denies: Fever HEENT: Reports: No Symptoms Pulmonary: Reports: Shortness of Breath Cardiovascular: Denies: Chest Pain, Edema, Lightheadedness Gastrointestinal: Denies: Abdominal Pain, Nausea, Vomiting Genitourinary: Reports: No Symptoms Musculoskeletal: Reports: No Symptoms Skin: Reports: Pallor, Other (color ashen ) Neurological: Reports: Confusion - Patient Data Vitals - Most Recent: Last Vital Signs Temp 98.5 F 08/01/17 17:33 Pulse 103 H 08/01/17 14:52 Resp 20 08/01/17 17:33 BP 143/67 H 08/01/17 17:33 Pulse Ox 86 L 08/01/17 17:33 Weight - Most Recent: 72 lb I&O - Last 24 Hours: Intake & Output 08/01/17 08/01/17 08/01/17 06:59 14:59 22:59 Intake Total 200 550 Output Total 450 1200 Balance -250 -650 Lab Results Last 24 Hours: Laboratory Results - last 24 hr 08/01/17 08/01/17 08/01/17 Range/Units 08:15 08:15 08:15 WBC 17.3 H (5.0-10.0) 10^3/uL RBC 4.84 (4.00-5.50) 10^6/uL Hgb 13.9 (12.0-16.0) g/dL Hct 41.9 (37.0-47.0) % MCV 86.6 (82.0-94.0) fL MCH 28.7 (27.0-32.0) pg MCHC 33.2 (33.0-38.0) g/dL RDW Coeff of Lisa 14.8 (11.0-15.0) % Plt Count 299 (150-400) 10^3/uL Add Manual Diff Yes Neutrophils % (Manual) 90 H (35-85) % Band Neutrophils % 3 (0-5) % Lymphocytes % (Manual) 4 L (21-55) % Monocytes % (Manual) 3 (2-12) % Absolute Neutrophils 16.09 H (1.80-7.00) 10^3/uL Lymphocytes # (Manual) 0.69 L (1.00-4.80) 10^3/uL Monocytes # (Manual) 0.52 (0.00-0.80) 10^3/uL D-Dimer, Quantitative 5.23 H (0.00-0.50) ABG pH 7.50 H (7.35-7.45) ABG pCO2 46 H (35-45) mm/Hg0 ABG pO2 40 L (80-100) mm/Hg ABG HCO3 35.7 H (22.0-26.0) mm/L ABG O2 Saturation 79 L (95-98) % ABG Base Excess 13.0 H (-2.0-3.0) O2 Delivery Device Nasal cannula Sodium (136-145) mEq/L Potassium (3.5-5.0) mEq/L Chloride (98-106) mEq/L Carbon Dioxide (21-32) mmol/L BUN (7-18) mg/dL Creatinine (0.6-1.0) mg/dL Est Cr Clr Drug Dosing mL/min Estimated GFR (MDRD) (>=60) mL/min Glucose (75-99) mg/dL Calcium (8.4-10.1) mg/dL Total Bilirubin (0.0-1.0) mg/dL AST (15-37) U/L ALT (12-78) U/L Alkaline Phosphatase (46-116) U/L Lactate Dehydrogenase (100-190) U/L Creatine Kinase (21-215) U/L Troponin I (0.00-0.06) ng/mL C-Reactive Protein (0.2-0.8) mg/dL NT-Pro-B Natriuret Pep (0-1000) pg/mL Total Protein (6.4-8.2) g/dL Albumin (3.4-5.0) g/dL 08/01/17 Range/Units 08:15 WBC (5.0-10.0) 10^3/uL RBC (4.00-5.50) 10^6/uL Hgb (12.0-16.0) g/dL Hct (37.0-47.0) % MCV (82.0-94.0) fL MCH (27.0-32.0) pg MCHC (33.0-38.0) g/dL RDW Coeff of Lisa (11.0-15.0) % Plt Count (150-400) 10^3/uL Add Manual Diff Neutrophils % (Manual) (35-85) % Band Neutrophils % (0-5) % Lymphocytes % (Manual) (21-55) % Monocytes % (Manual) (2-12) % Absolute Neutrophils (1.80-7.00) 10^3/uL Lymphocytes # (Manual) (1.00-4.80) 10^3/uL Monocytes # (Manual) (0.00-0.80) 10^3/uL D-Dimer, Quantitative (0.00-0.50) ABG pH (7.35-7.45) ABG pCO2 (35-45) mm/Hg0 ABG pO2 (80-100) mm/Hg ABG HCO3 (22.0-26.0) mm/L ABG O2 Saturation (95-98) % ABG Base Excess (-2.0-3.0) O2 Delivery Device Sodium 132 L (136-145) mEq/L Potassium 3.9 (3.5-5.0) mEq/L Chloride 91 L (98-106) mEq/L Carbon Dioxide 38 H (21-32) mmol/L BUN 20 H (7-18) mg/dL Creatinine 0.6 (0.6-1.0) mg/dL Est Cr Clr Drug Dosing 39.20 mL/min Estimated GFR (MDRD) > 60 (>=60) mL/min Glucose 92 (75-99) mg/dL Calcium 8.2 L (8.4-10.1) mg/dL Total Bilirubin 0.5 (0.0-1.0) mg/dL AST 28 (15-37) U/L ALT 54 (12-78) U/L Alkaline Phosphatase 96 (46-116) U/L Lactate Dehydrogenase 196 H (100-190) U/L Creatine Kinase 23 (21-215) U/L Troponin I < 0.017 (0.00-0.06) ng/mL C-Reactive Protein 4.2 H (0.2-0.8) mg/dL NT-Pro-B Natriuret Pep 1903 H (0-1000) pg/mL Total Protein 6.2 L (6.4-8.2) g/dL Albumin 2.2 L (3.4-5.0) g/dL Med Orders - Current: Current Medications Acetaminophen (Tylenol) 650 mg PO Q4H PRN PRN Reason: Pain (Mild 1-3)/fever Last Admin: 07/30/17 09:48 Dose: 650 mg Albuterol/Ipratropium (Duoneb 3.0-0.5 Mg/3 Ml) 3 ml NEB QIDRT [facility] Last Admin: 08/01/17 17:25 Dose: 3 ml Azithromycin (Zithromax) 250 mg PO DAILY [facility] Last Admin: 08/01/17 08:18 Dose: 250 mg Ceftriaxone Sodium (Rocephin) 1 gm IVPUSH Q24H [facility] Last Admin: 07/31/17 20:14 Dose: 1 gm Enoxaparin Sodium (Lovenox) 30 mg SUBCUT Q12H [facility] Lorazepam (Ativan) 0.5 mg IVPUSH Q6H PRN PRN Reason: Anxiety Last Admin: 08/01/17 10:06 Dose: 0.5 mg Methylprednisolone Sodium Succinate (Solu-Medrol) 62.5 mg IVPUSH Q24H [facility] Last Admin: 08/01/17 08:18 Dose: 62.5 mg Nicotine (Habitrol) 7 mg TRDERM DAILY@1999 [facility] Last Admin: 07/31/17 20:13 Dose: 7 mg Oxyquinoline Sulfate (Bag [place] Oint) 0 oz TOP ASDIRECTED PRN PRN Reason: Wound Care Pantoprazole Sodium (Protonix Iv) 40 mg IVPUSH Q24H [facility] Last Admin: 07/31/17 20:17 Dose: 40 mg Sodium Chloride (Saline Flush) 10 ml FLUSH ASDIRECTED PRN PRN Reason: Keep Vein Open Tramadol HCl (Ultram) 50 mg PO Q6H PRN PRN Reason: Pain Last Admin: 08/01/17 18:53 Dose: 50 mg Discontinued Medications Enoxaparin Sodium (Lovenox) 30 mg SUBCUT Q24H [facility] Last Admin: 07/31/17 20:26 Dose: 30 mg Enoxaparin Sodium (Lovenox) 30 mg SUBCUT ONETIME ONE Stop: 08/01/17 14:16 Last Admin: 08/01/17 14:50 Dose: 30 mg Furosemide (Lasix) 40 mg IVPUSH ONETIME ONE Stop: 08/01/17 18:10 Last Admin: 08/01/17 18:24 Dose: 40 mg Furosemide (Lasix) Confirm Administered Dose 40 mg .ROUTE .STK-MED ONE Stop: 08/01/17 18:34 Last Admin: 08/01/17 18:24 Dose: Not Given Iopamidol (Isovue-370 (76%)) 100 ml IVPUSH ONETIME ONE Stop: 08/01/17 09:33 Last Admin: 08/01/17 10:42 Dose: 100 ml - Exam Quality Assessment: Supplemental Oxygen General: Moderate Distress HEENT: No: Mucous Membr. Moist/[place] Neck: Supple Lungs: Decreased Breath Sounds, Rales (RLL) Cardiovascular: Regular Rate, Regular Rhythm, Murmurs GI/Abdominal Exam: Normal Bowel Sounds, Soft, Non-Tender Skin: Warm, Dry - Problem List & Annotations (1) Tachypnea SNOMED Code(s): 803604495 Code(s): R06.82 - TACHYPNEA, NOT ELSEWHERE CLASSIFIED Status: Acute Priority: High Current Visit: Yes (2) Palliative care status SNOMED Code(s): 337476440 Code(s): Z51.5 - ENCOUNTER FOR PALLIATIVE CARE Status: Acute Priority: High Current Visit: Yes (3) Pneumonia SNOMED Code(s): 665095155 Code(s): J18.9 - PNEUMONIA, UNSPECIFIED ORGANISM Status: Acute Priority: High Current Visit: Yes (4) COPD, Moderate chronic obstructive pulmonary disease SNOMED Code(s): 154586662 Code(s): J44.9 - CHRONIC OBSTRUCTIVE PULMONARY DISEASE, UNSPECIFIED Status : Chronic Priority: High Current Visit: Yes - Problem List Review Problem List Initiated/Reviewed/Updated: Yes - My Orders Last 24 Hours: My Active Orders 08/01/17 08:52 Ang Chest [CT] Routine 08/01/17 09:44 LORazepam [Ativan] 0.5 mg IVPUSH Q6H PRN 08/01/17 20:00 Enoxaparin [Lovenox] 30 mg SUBCUT Q12H - Assessment Assessment:: COPD exacerbation Tachypnea Hypoxia - Plan Plan:: Lab called. ABGs drawn. PO2 of 40, PCO2 of 46. pH 7.5. Oxygen on at 6 liters per minute. Results reviewed. Elevated d-dimer, mild increase in ProBNP. Patient very restless, not wanting to proceed with CT. Ativan given and will attempt to obtain the CT later if able. Lovenox increased to BID for PE coverage. Continue IV antibiotics. Neb treatment given with minimal improvement. Family aware. Will monitor.
[2017-08-01] MEDS ORDERED: Enoxaparin 30 MG/0.3 ML Syringe SUBCUT SCH (20:00)
[2017-08-01] MEDS ORDERED: Morphine 2 MG/ML Syringe IVPUSH PRN (20:19)
--- NOTE | 2017-08-01 20:26 | PCM.SN ---
- Free Text/Narrative Note: Patient continues to decline this evening. Oxygen sats have dropped more to the 70s. Tachypnea. Did give IV Lasix 40 mg as PE scan negative, did note bilateral pleural effusion. Did not respond all that well so contacted daughter Tiesha to discuss status of patient, declining status and determination of transfer if needed to improve status. Family will like to consult with each other in regards to code status and further treatment as do not want ventilatory support or transfer. Daughter Tiesha did call back after family consultation and would like to change status to Code 3 and keep her comfortable. Will stop IV antibiotics, steroids, all labs and further imaging. Family aware of all changes.
[2017-08-01] MEDS: Nicotine 7 MG/24 Hr Patch TRDERM SCH (21:01)
[2017-08-02] MEDS: Pantoprazole 40 MG Vial IVPUSH SCH (01:09)
[2017-08-02] MEDS: cefTRIAXone 1 GM Vial IVPUSH SCH (01:09)
[2017-08-02] MEDS: Albuterol/Ipratropium 3.0-0.5 MG/3 ML Neb Soln NEB SCH ×4 (07:56→20:49)
[2017-08-02] MEDS: Polyvinyl Alcohol 1.4% Ophth Soln 15 ML Bottle EYEBOTH PRN (08:22)
[2017-08-02] MEDS: Oxyquinoline/Emollient 0.3% Oint 1 OZ Canister TOP PRN (08:23)
[2017-08-02] MEDS: fentaNYL 100 MCG/2 ML SDV IV SCH (20:49)
[2017-08-02] MEDS: Nicotine 7 MG/24 Hr Patch TRDERM SCH (20:49)
[2017-08-03] MEDS: fentaNYL 100 MCG/2 ML SDV IV PRN ×2 (05:41→15:19)
[2017-08-03] MEDS: Albuterol/Ipratropium 3.0-0.5 MG/3 ML Neb Soln NEB SCH ×4 (07:16→19:44)
[2017-08-03] MEDS: fentaNYL 100 MCG/2 ML SDV IV SCH ×2 (07:16→19:41)
[2017-08-03] MEDS: Oxyquinoline/Emollient 0.3% Oint 1 OZ Canister TOP PRN (10:04)
[2017-08-03] MEDS: Polyvinyl Alcohol 1.4% Ophth Soln 15 ML Bottle EYEBOTH PRN (10:04)
[2017-08-03] MEDS: Nicotine 7 MG/24 Hr Patch TRDERM SCH (19:40)
[2017-08-04] MEDS: fentaNYL 100 MCG/2 ML SDV IV SCH ×2 (08:21→19:52)
[2017-08-04] MEDS: Albuterol/Ipratropium 3.0-0.5 MG/3 ML Neb Soln NEB SCH ×4 (08:23→19:48)
[2017-08-04] MEDS: LORazepam 2 MG/ML Syringe IVPUSH PRN (11:16)
[2017-08-04] MEDS: fentaNYL 100 MCG/2 ML SDV IV PRN (11:54)
[2017-08-04] MEDS ORDERED: Nystatin Crm 30 GM Tube TOP PRN (16:06)
[2017-08-04] MEDS: Nicotine 7 MG/24 Hr Patch TRDERM SCH (19:48)
[2017-08-05] MEDS: LORazepam 2 MG/ML Syringe IVPUSH PRN ×2 (00:30→09:01)
[2017-08-05] MEDS: fentaNYL 100 MCG/2 ML SDV IV PRN (03:32)
[2017-08-05] MEDS: fentaNYL 100 MCG/2 ML SDV IV SCH (08:16)
[2017-08-05] MEDS: Albuterol/Ipratropium 3.0-0.5 MG/3 ML Neb Soln NEB SCH (08:18)
--- NOTE | 2017-08-08 09:01 | DISCH ---
DATE OF : 08/05/2017. ADMISSION DIAGNOSES: 1. Bibasilar pneumonia. 2. Dementia. DISCHARGE DIAGNOSIS: 1. BIBASILAR PNEUMONIA. 2. DEMENTIA. HISTORY: Ms Baez was a 81-year-old female who had been living on her own. She was very fragile and had evidence of dementia. She presented to our facility with fevers, weakness, and deterioration with evidence of pneumonia on x-ray. She was admitted to our facility and started on appropriate IV antibiotics and kept on an acute care. On day 4, she was transferred to swing bed with ongoing antibiotic use. SWING BED COURSE: The patient during her swing bed stay started to show evidence of deterioration by dropping her O2 sats, more confusion, lethargy, and worsening signs on her x-ray. She had an elevated D-dimer, and a CT scan was done which showed no clots, just worsening bibasilar pneumonia. Family was consulted about aggressiveness and possible transfer. They wanted her to switch to comfort measures only and did not want anything further aggressive done including antibiotics. She had been put on comfort cares only and she peacefully in her room on 08/05/2017 without complication. home was called and family was present. COMPLICATIONS: During her stay were none. CONSULTATIONS: None. DISPOSITION: Transported to home per protocol. WILMA /[id number]
== END 2017-08-05 12:45 | disposition expired | DRG 194 ==
LOC: CC.MS 09:25 → UNDOADMIN 09:25 → CC.MS 09:46
PROVIDERS: ADMIT Family Medicine; ATTEND Family Medicine
DX: J18.9 Pneumonia, unspecified organism (principal); J44.0 Chronic obstructive pulmonary disease with (acute) lower respiratory infection; J44.1 Chronic obstructive pulmonary disease with (acute) exacerbation; J44.9 Chronic obstructive pulmonary disease, unspecified; Z51.5 Encounter for palliative care; R09.02 Hypoxemia; F03.90 Unspecified dementia, unspecified severity, without behavioral disturbance, psychotic disturbance, mood disturbance, and anxiety; R53.1 Weakness; I50.9 Heart failure, unspecified; I11.0 Hypertensive heart disease with heart failure; F32.9 Major depressive disorder, single episode, unspecified; F41.9 Anxiety disorder, unspecified; G89.29 Other chronic pain; M54.9 Dorsalgia, unspecified; Z96.649 Presence of unspecified artificial hip joint; F17.210 Nicotine dependence, cigarettes, uncomplicated
CPT/HCPCS: 36415; 36600; 71275; 80053; 82550; 82803; 83615; 83880; 84484; 85025; 85379; 86140; 94640; A9270-GY; C9113; J0696; J1650; J1940; J2060; J2270; J2930; J3010; Q9967